=== PATIENT | female | born 1995 | race American Indian/Alaskan Native ===

== ENCOUNTER 2016-07-21 14:08 | Emergency (ER) | payer BC, OTHER ==
[2016-07-21 14:31] VITALS: BP 107/86
[2016-07-21] MEDS ORDERED: MORPHINE IM ONE (14:31)
[2016-07-21] MEDS ORDERED: ZOFRAN ODT PO ONE (14:31)
--- NOTE | 2016-07-21 14:39 | Emergency Department Report ---
ED Fall HPI - General Chief Complaint: Fall Stated Complaint: NECK/BACK PAIN Time Seen by Provider: 07/21/16 14:29 Source: patient Mode of arrival: Stretcher - History of Present Illness Initial Comments: States she slipped and fell jerking her neck. She states she did not hit her head. She complains of neck pain and no other injury. She does not complain of any tingling paresthesias or weakness in the extremities. She states he's had no prior neck injury. MD Complaint: fall -: Gradual Fall From: standing When Fall Occurred: unsure Fall Witnessed: no Place Fall Occurred: home Loss of Consciousness: none Prolonged Down Time?: no Symptoms Prior to Fall: none Severity: moderate Quality: dull Context: tripped/slipped Associated Symptoms: denies - Related Data Previous Rx's Medication Instructions Recorded Last Taken Type Cephalexin [Keflex] 500 mg PO Q6H #28 capsule 05/08/14 Unknown Rx Ibuprofen [Motrin] 800 mg PO Q8H PRN #20 tablet 05/08/14 Unknown Rx Neomycin/Polymyxin B Sulf/Hc 4 drop AU TID #1 drops.susp 05/08/14 Unknown Rx [NEOMY/POLY/HC 3.5mg/29249wsviy/10mg OTIC] Cyclobenzaprine [Flexeril] 10 mg PO TID PRN #20 tablet 01/24/16 Unknown Rx Diclofenac Sodium 75 mg PO BID #20 tablet.dr 01/24/16 Unknown Rx HYDROcodone/APAP 5-325 [[place] 1 each PO Q6HR PRN #7 tablet 01/24/16 Unknown Rx 5/325] Cyclobenzaprine HCl [Flexeril 5 MG 5 mg PO TID PRN #14 tab 07/21/16 Unknown Rx TAB] HYDROcodone/APAP 7.5-325 [[place] 1 each PO Q6HR PRN #14 tablet 07/21/16 Unknown Rx 7.5/325] Allergies Allergy/AdvReac Type Severity Reaction Status Date / Time amoxicillin trihydrate Allergy Unknown Verified 01/24/16 22:33 [From Augmentin] clarithromycin [From Biaxin] Allergy Unknown Verified 01/24/16 22:33 potassium clavulanate Allergy Unknown Verified 01/24/16 22:33 [From Augmentin] Sulfa (Sulfonamide Allergy Unknown Verified 01/24/16 22:33 Antibiotics) ED Review of Systems ROS: Stated complaint: NECK/BACK PAIN Other details as noted in HPI Constitutional: denies: chills, fever Eyes: denies: eye pain, eye discharge, vision change ENT: denies: ear pain, throat pain Respiratory: denies: cough, shortness of breath, wheezing Cardiovascular: denies: chest pain, palpitations Endocrine: no symptoms reported Gastrointestinal: denies: abdominal pain, nausea, diarrhea Genitourinary: denies: urgency, dysuria, discharge Musculoskeletal: as per HPI. denies: back pain, joint swelling, arthralgia Skin: denies: rash, lesions Neurological: denies: headache, weakness, paresthesias Psychiatric: denies: anxiety, depression Hematological/Lymphatic: denies: easy bleeding, easy bruising ED Past Medical Hx - Past Medical History Hx Asthma: Yes Additional medical history: Polycystic ovary syndrome - Surgical History Past Surgical History?: No - Social History Smoking Status: Current Every Day Smoker Substance Use Type: Alcohol - Medications Home Medications: Home Medications Medication Instructions Recorded Confirmed Last Taken Type Cephalexin [Keflex] 500 mg PO Q6H #28 capsule 05/08/14 Unknown Rx Ibuprofen [Motrin] 800 mg PO Q8H PRN #20 tablet 05/08/14 Unknown Rx Neomycin/Polymyxin B Sulf/Hc 4 drop AU TID #1 drops.susp 05/08/14 Unknown Rx [NEOMY/POLY/HC 3.5mg/79442zrbzy/10mg OTIC] Cyclobenzaprine [Flexeril] 10 mg PO TID PRN #20 tablet 01/24/16 Unknown Rx Diclofenac Sodium 75 mg PO BID #20 tablet.dr 01/24/16 Unknown Rx HYDROcodone/APAP 5-325 [[place] 1 each PO Q6HR PRN #7 tablet 01/24/16 Unknown Rx 5/325] Cyclobenzaprine HCl [Flexeril 5 MG 5 mg PO TID PRN #14 tab 07/21/16 Unknown Rx TAB] HYDROcodone/APAP 7.5-325 [[place] 1 each PO Q6HR PRN #14 tablet 07/21/16 Unknown Rx 7.5/325] ED Physical Exam - General Limitations: No Limitations General appearance: alert, in no apparent distress - Head Head exam: Present: atraumatic, normocephalic - Eye Eye exam: Present: normal appearance. Absent: scleral icterus - ENT ENT exam: Present: mucous membranes moist - Neck Neck exam: Present: normal inspection, tenderness (paravertebral only) - Respiratory Respiratory exam: Present: normal lung sounds bilaterally. Absent: respiratory distress - Cardiovascular Cardiovascular Exam: Present: regular rate, normal rhythm. Absent: systolic murmur, diastolic murmur, rubs, gallop - GI/Abdominal GI/Abdominal exam: Present: soft, normal bowel sounds. Absent: distended, tenderness, guarding, rebound, rigid - Extremities Exam Extremities exam: Present: normal inspection, full ROM - Back Exam Back exam: Present: normal inspection. Absent: tenderness, CVA tenderness (R), CVA tenderness (L), muscle spasm, paraspinal tenderness, vertebral tenderness - Neurological Exam Neurological exam: Present: alert, oriented X3, CN II-XII intact. Absent: motor sensory deficit - Psychiatric Psychiatric exam: Present: normal affect, normal mood - Skin Skin exam: Present: warm, dry, intact, normal color. Absent: rash ED Course Vital Signs 07/21/16 07/21/16 14:30 14:31 Temperature 98.3 F Pulse Rate 93 H Respiratory 20 20 Rate Blood Pressure 107/86 [Right] O2 Sat by Pulse 98 98 Oximetry ED Medical Decision Making - Radiology Data interpreted by me: CT the cervical spine I don't see any acute process and will be read by the radiologist. Critical care attestation.: If time is entered above; I have spent that time in minutes in the direct care of this critically ill patient, excluding procedure time. ED Disposition Clinical Impression: Cervical strain, acute Qualifiers: Encounter type: initial encounter Qualified Code(s): S16.1XXA - Strain of muscle, fascia and tendon at neck level, initial encounter Disposition: DISCHARGED TO HOME OR SELFCARE Is pt being admited?: No Does the pt Need Aspirin: No Condition: Stable Instructions: Muscle Strain (ED), Cervical Spine Strain (ED) Additional Instructions: Follow-up with orthopedist. Return any acute change or problem. Prescriptions: Cyclobenzaprine HCl [Flexeril 5 MG TAB] 5 mg PO TID PRN #14 tab PRN Reason: Muscle Spasm HYDROcodone/APAP 7.5-325 [[place] 7.5/325] 1 each PO Q6HR PRN #14 tablet PRN Reason: Pain Referrals: GLO GONZALEZ MD [Staff Physician] - 3-5 Days Time of Disposition: 16:11
--- NOTE | 2016-07-21 16:13 | Cat Scan Report ---
FINAL REPORT PROCEDURE: CT CERVICAL SPINE WO CON TECHNIQUE: Computerized tomography of the cervical spine was performed from the skull base to T1 without contrast material. HISTORY: Trauma. Fell. Pain. COMPARISON: No prior studies are available for comparison. FINDINGS: There appears to be a small separate ossification center involving the anterior ring of C1 inferiorly. Well corticated lucency is seen through the inferior projection. An acute fracture does not appear to be present.. The prevertebral soft tissues appear normal. Disc spaces are well preserved. Posterior elements are intact. No focal disc herniation or spinal stenosis is visualized. IMPRESSION: Excess re-ossification center anterior ring of C1 inferiorly. No definite fracture or subluxation is seen...
[2016-07-21] MEDS ORDERED: PERCOCET 5/325 PO ONE (16:18)
[2016-07-21] MEDS ORDERED: FLEXERIL PO ONE (16:18)
== END 2016-07-21 17:43 | disposition home or self-care (01) ==
LOC: ED 14:08
DX: S16.1XXA Strain of muscle, fascia and tendon at neck level, initial encounter (principal); J45.909 Unspecified asthma, uncomplicated; F17.200 Nicotine dependence, unspecified, uncomplicated; E28.2 Polycystic ovarian syndrome; Z88.1 Allergy status to other antibiotic agents; Z88.2 Allergy status to sulfonamides; Z79.899 Other long term (current) drug therapy; W01.0XXA Fall on same level from slipping, tripping and stumbling without subsequent striking against object, initial encounter; Y93.89 Activity, other specified; Y99.8 Other external cause status; Y92.009 Unspecified place in unspecified non-institutional (private) residence as the place of occurrence of the external cause
CPT/HCPCS: 72125; 96372; 99283; J2270; Q0162

== ENCOUNTER 2021-02-10 20:29 | Emergency (ER) | payer BC, OTHER ==
[2021-02-10 20:49] VITALS: BP 129/97
--- NOTE | 2021-02-10 21:37 | Event Note ---
ED Screening Note Date of service: 02/10/21 Time: 21:35 ED Screening Note: 25-year-old female patient presents emergency department with complaints of paresthesias along the left side of her body as well as neck discomfort and distended neck veins. Patient has been evaluated in multiple emergency departments for her symptoms. Patient has undergone multiple CT scans and taken multiple medications with no relief. Tachycardic in triage. General: Awake, appropriately interactive, no acute distress. Neck: Supple. Full range of motion intact. Cardiovascular: Normal peripheral perfusion. Pulmonary: No respiratory distress. Patient is speaking normally without use of accessory muscles. Skin: No apparent rashes or lesions. Neurological: No facial asymmetry. Speech is clear. Follows commands. Patient is alert and oriented. Musculoskeletal: Moves all four extremities spontaneously with normal range of motion. Psych: Cooperative. Appropriate mood and affect. EKG and labs ordered. Decision to repeat imaging deferred to additional ED providers following complete history and comprehensive physical exam. I have greeted and performed a focused rapid initial assessment of this patient. A comprehensive ED assessment and evaluation of the patient, analysis of all test results, and completion of the medical decision-making process will be conducted by additional ED providers. This initial assessment/diagnostic orders/clinical plan/treatment(s) is/are subject to change based on patients health status, clinical progression and re-assessment. Further treatment and workup at subsequent clinical provider's discretion. Patient/guardian urged not to elope from the ED as their condition may be serious if not clinically assessed and managed.
[2021-02-10 22:18] LABS: Basophils % (Auto) 0.6 % (0.0-1.8); Eosinophils # (Auto) 0.1 K/mm3 (0.0-0.4); Eosinophils % (Auto) 1.3 % (0.0-4.3); Hematocrit 38.9 % (30.3-42.9); Lymphocytes # (Auto) 3.1 K/mm3 (1.2-5.4); Lymphocytes % (Auto) 43.3 % (13.4-35.0); Mean Corpuscular HGB Conc 33 % (30-34); Mean Corpuscular Volume 100 fl (79-97); Monocytes # (Auto) 0.6 K/mm3 (0.0-0.8); Monocytes % (Auto) 8.6 % (0.0-7.3); Platelet Count 189 K/mm3 (140-440); Red Blood Count 3.87 M/mm3 (3.65-5.03); Red Cell Distribution Width 12.7 % (13.2-15.2)
--- NOTE | 2021-02-10 22:22 | Emergency Department Report ---
ED General Adult HPI - General Chief complaint: Neuro Symptoms/Deficit Stated complaint: LEFT SIDE PAIN/NUMBNESS Time Seen by Provider: 02/10/21 21:28 Source: patient Mode of arrival: Ambulatory Limitations: No Limitations - History of Present Illness Initial comments: 25-year-old female presents to ED for evaluation. Patient states she has been seen previously an outside ERs for "tension in my neck." Patient states is not pain per se but tension. Patient is also concerned that her jugular vein is distended. Patient states, "Other people's veins are not as big as mine." Patient states it is distended at all times, which I reassured her it is not. As I am talking to her her pain is not visible until she turns her head a certain way. Patient is also reporting that she is having some pain radiating from the back of her neck down to her left hand. She states this pain is like a soreness. She also describes some tingling sensation in the hand. She denies any weakness of her arm. Patient reports she was seen previously at another facility and had a CT scan done which was unremarkable. -: week(s) (2) Location: neck, left, upper extremity Radiation: extremity Quality: other (Soreness) Consistency: intermittent Improves with: other (Unknown) Worsens with: other (Unknown) Associated Symptoms: denies: fever/chills, headaches, nausea/vomiting, shortness of breath, weakness - Related Data Previous Rx's Medication Instructions Recorded Last Taken Type Ibuprofen [Motrin] 800 mg PO Q8H PRN #20 tablet 05/08/14 Unknown Rx Neomycin/Polymyxin B Sulf/Hc 4 drop AU TID #1 drops.susp 05/08/14 Unknown Rx [NEOMY/POLY/HC 3.5mg/91691jvqlm/10mg OTIC] cephALEXin [Keflex] 500 mg PO Q6H #28 capsule 05/08/14 Unknown Rx Cyclobenzaprine [Flexeril] 10 mg PO TID PRN #20 tablet 01/24/16 Unknown Rx Diclofenac Sodium 75 mg PO BID #20 tablet.dr 01/24/16 Unknown Rx HYDROcodone/APAP 5-325 [[place] 1 each PO Q6HR PRN #7 tablet 01/24/16 Unknown Rx 5/325] Cyclobenzaprine HCl [Flexeril 5 MG 5 mg PO TID PRN #14 tab 07/21/16 Unknown Rx TAB] HYDROcodone/APAP 7.5-325 [[place] 1 each PO Q6HR PRN #14 tablet 07/21/16 Unknown Rx 7.5/325] Allergies Allergy/AdvReac Type Severity Reaction Status Date / Time amoxicillin trihydrate Allergy Unknown Verified 01/24/16 22:33 [From Augmentin] clarithromycin [From Biaxin] Allergy Unknown Verified 01/24/16 22:33 potassium clavulanate Allergy Unknown Verified 01/24/16 22:33 [From Augmentin] Sulfa (Sulfonamide Allergy Unknown Verified 01/24/16 22:33 Antibiotics) ED Review of Systems ROS: Stated complaint: LEFT SIDE PAIN/NUMBNESS Other details as noted in HPI Comment: All other systems reviewed and negative Constitutional: denies: chills, fever Respiratory: denies: shortness of breath Cardiovascular: denies: chest pain Neurological: paresthesias. denies: headache, weakness ED Past Medical Hx - Past Medical History Previous Medical History?: Yes Hx Asthma: Yes Additional medical history: Polycystic ovary syndrome - Surgical History Past Surgical History?: No - Social History Smoking Status: Current Every Day Smoker Substance Use Type: Alcohol - Medications Home Medications: Home Medications Medication Instructions Recorded Confirmed Last Taken Type Ibuprofen [Motrin] 800 mg PO Q8H PRN #20 tablet 05/08/14 Unknown Rx Neomycin/Polymyxin B Sulf/Hc 4 drop AU TID #1 drops.susp 05/08/14 Unknown Rx [NEOMY/POLY/HC 3.5mg/35182bppif/10mg OTIC] cephALEXin [Keflex] 500 mg PO Q6H #28 capsule 05/08/14 Unknown Rx Cyclobenzaprine [Flexeril] 10 mg PO TID PRN #20 tablet 01/24/16 Unknown Rx Diclofenac Sodium 75 mg PO BID #20 tablet.dr 01/24/16 Unknown Rx HYDROcodone/APAP 5-325 [[place] 1 each PO Q6HR PRN #7 tablet 01/24/16 Unknown Rx 5/325] Cyclobenzaprine HCl [Flexeril 5 MG 5 mg PO TID PRN #14 tab 07/21/16 Unknown Rx TAB] HYDROcodone/APAP 7.5-325 [[place] 1 each PO Q6HR PRN #14 tablet 07/21/16 Unknown Rx 7.5/325] ED Physical Exam - General Limitations: No Limitations General appearance: alert, in no apparent distress, obese - Head Head exam: Present: atraumatic, normocephalic - Eye Eye exam: Present: normal appearance, EOMI - ENT ENT exam: Present: mucous membranes moist - Neck Neck exam: Present: normal inspection, full ROM. Absent: tenderness - Respiratory Respiratory exam: Present: normal lung sounds bilaterally. Absent: respiratory distress - Cardiovascular Cardiovascular Exam: Present: regular rate, normal rhythm - GI/Abdominal GI/Abdominal exam: Absent: distended - Extremities Exam Extremities exam: Present: normal inspection, full ROM - Neurological Exam Neurological exam: Present: alert, oriented X3, CN II-XII intact, normal gait. Absent: motor sensory deficit (Strength 5/5 in all extremities, sensation i ntact) - Psychiatric Psychiatric exam: Present: anxious - Skin Skin exam: Present: warm, dry, intact, normal color ED Course Vital Signs 02/10/21 20:45 Temperature 98.5 F Pulse Rate 104 H Respiratory 18 Rate Blood Pressure 129/97 O2 Sat by Pulse 100 Oximetry ED Medical Decision Making - Lab Data Result diagrams: 02/10/21 21:39 02/10/21 21:39 - EKG Data -: EKG Interpreted by Me EKG shows normal: sinus rhythm, axis, intervals, QRS complexes, ST-T waves Rate: normal - EKG Data Interpretation: no acute changes - Medical Decision Making Initially had a long talk with patient. She stated that she did not feel as if she was being heard by previous providers from previous ER visits. I sat down with the patient and listen to her complaints. Patient was comfortable at that time with the plan of her having possible cervical radiculopathy. I spoke with patient in regards to her jugular vein concerns, and reassured her that her jugular vein appears normal. She has no tenderness or swelling in the area. Labs have already been drawn. I spoke with patient and told her that we will follow-up on the results of those labs, but I felt as though patient needs to follow-up with spine physician. Patient was agreeable with this plan and also asked for additional PCP recommendations. Upon discharge, patient is now upset. Stating that she believes that she needs another CT or x-ray. I confirmed that patient reported that she had imaging studies done when her symptoms began. Patient states, "Yes but that was 2 weeks ago." Patient seems to be extremely anxious. Again, I spoke with patient about her condition and advised that she follow-up on an outpatient basis. - Differential Diagnosis Cervical radiculopathy, anxiety Critical care attestation.: If time is entered above; I have spent that time in minutes in the direct care of this critically ill patient, excluding procedure time. ED Disposition Clinical Impression: Cervical radiculopathy Disposition: HOME / SELF CARE / HOMELESS Is pt being admited?: No Condition: Stable Instructions: Cervical Radiculopathy, [id number] Referrals: BEREKET AVILA II, MD [Staff Physician] - 3-5 Days ASIM NOBLE MD [Staff Physician] - 3-5 Days [facility] [Provider Group] - 3-5 Days [facility] [Outside] - 3-5 Days Time of Disposition: 22:57
[2021-02-10 22:26] LABS: Alanine Aminotransferase 10 units/L (7-56); Albumin 4.4 g/dL (3.9-5); Blood Urea Nitrogen 8 mg/dL (7-17); Calcium 9.3 mg/dL (8.4-10.2); Hemolysis Index 12
[2021-02-10 22:40] LABS: BUN/Creatinine Ratio 16
--- NOTE | 2021-02-15 10:07 | Electrocardiograph Report ---
[facility] Test Date: 2021-02-11 Test Time: 00:55:41 Pat Name: TAYLOR BRENNER Department: Room: Gender: F [employer]: TEJA : 1995 Requested By: ASHLEY MCGOWAN Order Number: [id number] Reading MD: Vannessa Bernabe Measurements Intervals [place] Rate: 93 P: 55 KS: 143 QRS: 26 QRSD: 68 T: 24 QT: 341 QTc: 424 Interpretive Statements Sinus rhythm No previous ECG available for comparison Electronically Signed On 02-15-2021 10:06:33 EDT by Vannessa Bernabe
== END 2021-02-11 21:06 | disposition home or self-care (01) ==
LOC: ED 20:29
DX: M54.12 Radiculopathy, cervical region (principal); J45.909 Unspecified asthma, uncomplicated; E28.2 Polycystic ovarian syndrome; F17.200 Nicotine dependence, unspecified, uncomplicated; Z88.0 Allergy status to penicillin; Z88.1 Allergy status to other antibiotic agents; Z88.2 Allergy status to sulfonamides
CPT/HCPCS: 36415; 80053; 83735; 85025; 93005; 99283